=== PATIENT | female | born 1970 | race Two or more races ===

== ENCOUNTER 2023-10-12 23:30 | Inpatient (IN) | payer MEDICAID, OTHER ==
[~2023-10-12] VITALS: Ht 167.6 cm; Wt 74.0 kg
[2023-10-13 00:53] LABS: Basophils # (auto) 0.1 10 ^3/uL (0-0.2); Basophils % (auto) 0.5 % (0.0-2.0); Eosinophils # (auto) 0.5 10 ^3/uL (0-0.8); Eosinophils % (auto) 4.2 % (0.0-7.0); Hematocrit 38.9 % (36.0-46.0); Hemoglobin 13.1 g/dL (12.2-16.2); Lymphocytes # (auto) 1.8 10 ^3/uL (0.4-5.4); Lymphocytes % (auto) 13.9 % (10.0-50.0); Mean Corpuscular Hemoglobin 32.5 pg (28.0-32.0); Mean Corpuscular Hgb Conc. 33.7 g/dL (32.0-36.0); Mean Corpuscular Volume 96.4 fL (80.0-100.0); Monocytes # (auto) 0.7 10 ^3/uL (0-1.3); Monocytes % (auto) 5.9 % (0.0-12.0); Neutrophils # (auto) 9.6 10 ^3/uL (1.6-8.6); Neutrophils % (auto) 75.5 % (37.0-80.0); Red Blood Cells 4.03 10^6/uL (4.0-5.20); Red Cell Distribution Width 13.3 % (11.8-14.3); White Blood Cell 12.7 10^3/uL (4.4-10.8)
[2023-10-13 00:55] LABS: Alanine Aminotransferase 21 U/L (7-40); Albumin 4.2 g/dL (3.2-4.8); Alkaline Phosphatase 46 U/L (46-116); Anion Gap 6 (5-15); Aspartate Aminotransferase 18 U/L (13-40); BUN/Creatinine Ratio 20.2 (10.0-20.0); Bilirubin, Total 0.3 mg/dL (0.2-1.0); Blood Urea Nitrogen 17 mg/dL (9-23); Calcium 9.7 mg/dL (8.7-10.4); Carbon Dioxide 24 mmol/L (20-30); Chloride 112 mmol/L (98-107); Glucose 120 mg/dL (74-106); Lipase 57 U/L (12-53); Potassium 3.8 mmol/L (3.5-5.1); Sodium 142 mmol/L (136-145); Total Protein 6.9 g/dL (5.7-8.2)
[2023-10-13 00:56] LABS: INR 0.94 (0.9-1.15); Partial Thromboplastin Time 23.5 SEC (24.5-34.5)
[2023-10-13] MEDS ORDERED: ONDANSETRON HCL 4 MG/2 ML VIAL IV PRN ×2 (05:00→05:15)
[2023-10-13] MEDS ORDERED: ACETAMINOPHEN 325 MG TAB PO PRN (05:00)
[2023-10-13] MEDS ORDERED: HYDROcodone-ACET 5/325MG TAB PO PRN (05:00)
[2023-10-13] MEDS ORDERED: TEMAZEPAM 15 MG CAP PO PRN ×2 (05:00→05:15)
[2023-10-13] MEDS: metroNIDAZOLE 500MG/100ML 100 ML IV ONE (05:10)
[2023-10-13] MEDS: SODIUM CHLORIDE 0.9% 1,000 ML IV ONE (05:11)
[2023-10-13 05:12] VITALS: PULSE 68; RESP 18; O2SAT 97
[2023-10-13] MEDS: levoFLOXacin 500MG 100 ML IV ONE (05:55)
[2023-10-13] MEDS ORDERED: metroNIDAZOLE 500 MG TAB PO SCH (06:00)
[2023-10-13] MEDS: metroNIDAZOLE 500 MG TAB PO SCH ×2 (06:00→14:38)
[2023-10-13 09:42] LABS: Urine Bacteria None Seen /hpf (None Seen)
[2023-10-13 10:00] LABS: Urine Blood Negative /uL (Negative); Urine Clarity Clear (Clear); Urine Color Yellow (Yellow); Urine Protein, UAD Negative (Negative); Urine Urobilinogen Normal (Negative); Urine WBC 1 /hpf (0 - 5); Urine pH 5.5 (5.0-9.0)
[2023-10-13] MEDS ORDERED: levoFLOXacin 500MG 100 ML IV SCH (10:00)
[2023-10-13] MEDS: levoFLOXacin 500MG 100 ML IV SCH (10:23)
[2023-10-13] MEDS ORDERED: levoFLOXacin 500 MG TAB PO ONE (11:15)
[2023-10-13 14:38] LABS: Thyroid Stimulating Hormone 1.19 uIU/mL (0.55-4.78)
[2023-10-13] MEDS: PANTOPRAZOLE 40 MG TAB PO ONE (14:38)
[2023-10-13 14:46] LABS: Beta HCG, Quantitative 1.6 mIU/mL (1.5-4.2)
[2023-10-13 16:46] VITALS: BP 137/77; PULSE 77; RESP 17; TEMP 98; O2SAT 98
[2023-10-13 16:48] VITALS: PULSE 88; RESP 19; O2SAT 99
[2023-10-13] MEDS ORDERED: OMEP20TA PO (18:20)
[2023-10-13] MEDS ORDERED: VENL1TAB99 PO ×2 (18:20)
[2023-10-13] MEDS ORDERED: CETI-176 PO (18:20)
[2023-10-13] MEDS ORDERED: HYDR12.59 PO (18:20)
[2023-10-13] MEDS ORDERED: METO-289 PO (18:20)
[2023-10-13] MEDS ORDERED: ASPITAB37 PO (18:20)
[2023-10-14] MEDS ORDERED: PANTOPRAZOLE 40 MG TAB PO SCH (06:00)
[2023-10-14] MEDS ORDERED: levoFLOXacin 500 MG TAB PO SCH (10:00)
== END 2023-10-13 20:30 | disposition left against medical advice (07) | DRG 249 ==
LOC: EDBD 23:30 → ER 23:30 → OVERFLOW 10-13 04:49 → WEST WING 10-13 15:48
PROVIDERS: ADMIT Internal Medicine; ATTEND Surgery
DX: K52.9 Noninfective gastroenteritis and colitis, unspecified (principal); I10 Essential (primary) hypertension; Z88.0 Allergy status to penicillin; Z79.899 Other long term (current) drug therapy; Z88.2 Allergy status to sulfonamides; Z91.041 Radiographic dye allergy status; Z83.3 Family history of diabetes mellitus; Z80.0 Family history of malignant neoplasm of digestive organs; Z82.49 Family history of ischemic heart disease and other diseases of the circulatory system
CPT/HCPCS: 36415; 74176; 80053; 81001; 82306; 82607; 83036; 83690; 84443; 84702; 85025; 85610; 85730; 93005; 96365; 96366; 96367; G0378; J1956; J3490

== ENCOUNTER 2024-03-20 14:52 | Emergency (ER) | payer MEDICAID ==
[~2024-03-20] VITALS: Ht 162.6 cm; Wt 69.5 kg
[~2024-03-20 14:52] MED LIST: ASPITAB37 PO; CETI-176 PO; HYDR12.59 PO; METO-289 PO; OMEP20TA PO; VENL1TAB99 PO
--- NOTE | 2024-03-20 15:24 | ED.PDOC ---
History of Present Illness HPI Comments 53F presents to the ER w/ no prior Hx associated to the c/c of wrist pain. Pt reports that she was on a ladder trimming a "high tree" when she fell and landed on her left wrist. Pt notes the incident to be 1 hour ago. PMHx of HTN. Social Hx of tobacco use, but denies alcohol and substance use. Family Hx of DM and Liver Cancer. Denies chills, fever, N/V/D, SOB, CP or other associated symptoms, modifiers, or recent injuries at this time. Chief Complaint: Upper Extremity Time Seen by MD: 15:15 Primary Care Provider: RACHAEL Reviewed Notes: Nurses Notes, Medications, Allergies Allergies: Coded Allergies: Iodine (Verified Allergy, Unknown, 10/12/23) Penicillins (Verified Allergy, Unknown, 10/12/23) Sulfa Antibiotics (Verified Allergy, Unknown, 10/12/23) Home Meds Active Scripts Hydrocodone-Acetaminophen (Hydrocodone Bitartrate/AC 5-325 mg) 1 Tab Tab, 1 TAB PO Q8HP PRN for 5 Days, #15 TAB Prov:BRITTANY ESCOTO MD 03/20/24 Reported Medications Venlafaxine Hydrochloride (Venlafaxine Hcl) 75 Mg Tab, 75 MG PO DAILY, TAB 10/13/23 Omeprazole (Gnp Omeprazole) 20 Mg Tab, 20 MG PO, TAB 10/13/23 Onkbomx-Cyknfcumsgwha-Kjatomum (Excedrin Extra Strength) Expr Gel Tab, 1 GEL PO Q6HP, TAB 10/13/23 Cetirizine Hcl (Zyrtec Allergy) 10 Mg Tab, 10 MG PO, TAB 10/13/23 Venlafaxine Hydrochloride (Venlafaxine Hcl) 75 Mg Tab, 75 MG PO, TAB 10/13/23 Hydrochlorothiazide (Hydrochlorothiazide) 12.5 Mg Cap, 12.5 MG PO DAILY, CAP 10/13/23 Metoprolol Succinate (Metoprolol Succinate Er) 50 Mg Tab, 50 MG PO, TAB 10/13/23 Information Source: Patient Mode of Arrival: Ambulatory Severity: Moderate Timing: Minutes Duration: Since onset, Minutes Prehospital treatment: None Past Medical History PAST MEDICAL HISTORY: HTN Surgical History: Denies all surgeries 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 Family History Family History: Reviewed,noncontributory to illness, Family hx of DM, Family hx of Cancer (Liver) Social History Smoker: Cigarettes Alcohol: Denies ETOH Use Drugs: Denies Drug Use Lives In: Home Constitutional: reports: others (fall trauma); denies: chills, diaphoresis, fatigue, fever, malaise, sweats, weakness EENTM: denies: blurred vision, double vision, ear bleeding, ear discharge, ear drainage, ear pain, ear ringing, eye pain, eye redness, hearing loss, mouth pain, mouth swelling, nasal discharge, nose bleeding, nose congestion, nose pain, photophobia, tearing, throat pain, throat swelling, voice changes, others Respiratory: denies: cough, hemoptysis, orthopnea, SOB at rest, shortness of breath, SOB with excertion, stridor, wheezing, others Cardiovascular: denies: chest pain, dizzy spells, diaphoresis, Dyspnea on exertion, edema, irregular heart beat, left arm pain, lightheadedness, palpitations, PND, syncope, others Gastrointestinal: denies: abdomen distended, abdominal pain, blood streaked bowels, constipated, diarrhea, dysphagia, difficulty swallowing, hematemesis, melena, nausea, poor appetite, poor fluid intake, rectal bleeding, rectal pain, vomiting, others Genitourinary: denies: abnormal vagina bleeding, burning, dyspareunia, dysuria, flank pain, frequency, hematuria, incontinence, pain, , vagina discharge, urgency, others Neurological: denies: dizziness, fainting, headache, left sided numbness, left sided weakness, numbness, paresthesia, pre-existing deficit, right sided numbness, right sided weakness, seizure, speech problems, tingling, tremors, weakness, others Musculoskeletal: reports: others (Left wrist injury); denies: back pain, gout, joint pain, joint swelling, muscle pain, muscle stiffness, neck pain Integumetry: denies: bruises, change in color, change in hair/nails, dryness, laceration, lesions, lumps, rash, wounds, others Allergic/Immunocompromised: denies: Difficulty Healing, Frequent Infections, Hives, Itching, others Hematologic/Lymphatic: denies: anemia, blood clots, easy bleeding, easy bruising, swollen glands, others Endocrine: denies: excessive hunger, excessive sweating, excessive thirst, excessive urination, flushing, intolerance to cold, intolerance to heat, unexplained weight gain, unexplained weight loss, others Psychiatric: denies: anxiety, bipolar disorder, depression, hopeless, panic disorder, schizophrenia, sleepless, suicidal, others All Other Systems: Reviewed and Negative Physical Exam General Appearance: Moderate Distress HEENT: Normal ENT Inspection, Pharynx Normal, TMs Normal Neck: Full Range of Motion, Non-Tender, Normal, Normal Inspection Respiratory: Chest Non-Tender, Lungs Clear, No Accessory Muscle Use, No Respiratory Distress, Normal Breath Sounds Cardiovascular: No Edema, No JVD, No Murmur, No Gallop, Normal Peripheral Pulses, Regular Rate/Rhythm Breast Exam: Deferred Gastrointestinal: No Organomegaly, Non Tender, No Pulsatile Mass, Normal Bowel Sounds, Soft Genitalia: Deferred Pelvic: Deferred Rectal: Deferred Extremities: No calf tenderness, Normal capillary refill, No pedal edema Musculoskeletal : Location: Left Extremity Location: Wrist Apperance: Swelling, Deformity, Limited ROM, Tenderness: Moderate Neurologic: Alert, surgical territory manager II-XII nml as Tested, No Motor Deficits, Normal Affect, Normal Mood, No Sensory Deficits Cerebellar Function: Normal Reflexes: Normal Skin: Dry, Normal Color, Warm Lymphatic: No Adenopathy Was a procedure done? Was a procedure done?: No Differential Dx Considerations may include: Fracture, strain, contusion X-Ray, Labs, Meds, VS Vital Signs Date Time Temp Pulse Resp B/P (MAP) Pulse Ox O2 Delivery O2 Flow Rate FiO2 03/20/24 17:24 77 16 162/109 (126) 97 03/20/24 16:25 90 15 142/97 03/20/24 15:35 87 16 97 Room Air* 0 21 03/20/24 15:33 98.3 87 16 151/97 (115) 97 98.3 03/20/24 15:10 98.2 99 16 156/104 (121) 97 Lab Test 03/20/24 15:37 Range/Units White Blood Count 10.4 4.4-10.8 10^3/uL Red Blood Count 4.25 4.0-5.20 10^6/uL Hemoglobin 13.5 12.2-16.2 g/dL Hematocrit 40.2 36.0-46.0 % Mean Corpuscular Volume 94.7 80.0-100.0 fL Mean Corpuscular Hemoglobin 31.8 28.0-32.0 pg Mean Corpuscular Hemoglobin Concent 33.6 32.0-36.0 g/dL Red Cell Distribution Width 13.2 11.8-14.3 % Platelet Count 298 140-450 10^3/uL Mean Platelet Volume 7.1 6.9-10.8 fL Neutrophils (%) (Auto) 76.9 37.0-80.0 % Lymphocytes (%) (Auto) 15.5 10.0-50.0 % Monocytes (%) (Auto) 5.8 0.0-12.0 % Eosinophils (%) (Auto) 1.3 0.0-7.0 % Basophils (%) (Auto) 0.5 0.0-2.0 % Neutrophils # (Auto) 8.0 1.6-8.6 10 ^3/uL Lymphocytes # (Auto) 1.6 0.4-5.4 10 ^3/uL Monocytes # (Auto) 0.6 0-1.3 10 ^3/uL Eosinophils # (Auto) 0.1 0-0.8 10 ^3/uL Basophils # (Auto) 0.1 0-0.2 10 ^3/uL Nucleated Red Blood Cells 0.0 % Prothrombin Time 10.3 9.3-11.8 sec Prothrombin Time INR 0.97 0.9-1.15 Activated Partial Thromboplast Time 25.0 24.5-34.5 SEC Sodium Level 140 136-145 mmol/L Potassium Level 3.6 3.5-5.1 mmol/L Chloride Level 108 H 98-107 mmol/L Carbon Dioxide Level 27 20-31 mmol/L Anion Gap 5 5-15 Blood Urea Nitrogen 16 9-23 mg/dL Creatinine 0.96 0.550-1.02 mg/dL Glomerular Filtration Rate Calc 70 >90 mL/min BUN/Creatinine Ratio 16.7 10.0-20.0 Serum Glucose 90 74-106 mg/dL Calcium Level 10.3 8.7-10.4 mg/dL Current Medications Medications (Trade) Dose Ordered Sig/Aida Route Start Time Stop Time Status Last Admin Morphine Sulfate 4 mg ONCE ONCE IV 03/20/24 15:15 03/20/24 15:18 DC 03/20/24 16:25 Ondansetron HCl (Zofran) 4 mg ONCE ONCE IV 03/20/24 15:15 03/20/24 15:18 DC 03/20/24 16:25 Etomidate 14 mg ONCE ONCE IV 03/20/24 17:30 03/20/24 17:31 03/20/24 17:05 PATIENT: GRETA HAYWARD ACCT: [id number] UNIT: [id number] : 1970 LOC: ER ROOM / BED: / AGE / SEX: 53 / F ADM STATUS: REG ER SERVICE [id number] ORDERING PHYSICIAN: BRITTANY ESCOTO MD PROCEDURE(s): LWRI - L WRIST 3+ VIEW XRAY REASON: trauma ORDER NUMBER(s): [id number], ACCESSION NUMBER(s): [id number] CLINICAL INDICATION: trauma TECHNIQUE: 3 radiographic views of the left were obtained. Comparison: None FINDINGS/IMPRESSION: Impacted comminuted displaced intra-articular fracture of the distal radius with mildly displaced fracture of the styloid process of the ulna. At this time, the patient underwent reduction here in the emergency department's The patient was given etomidate 20 mg IV push We did send the original images to the orthopedic surgeon. We did attempt a reduction with some improvements so the patient will be splinted and will be seen by the orthopedic surgeon tomorrow. The patient's CBC and chemistry panel is within normal limits The patient understands and agrees with the management The patient was given morphine for the pain and Zofran for the nausea The patient will be sent home on [employer] Images Reviewed?: Images reviewed and evaluated by me Time of 1ST Reevaluation: 15:45 Reevaluation 1ST: Unchanged Patient Education/Counseling: Diagnosis, Treatment, Prognosis, Need For Follow Up Family Education/Counseling: No Family Present Departure 1 Departure Time of Disposition: 17:13 Impression: Primary Impression: Left wrist fracture Qualified Codes: S62.102A - Fracture of unspecified carpal bone, left wrist, initial encounter for closed fracture Disposition: HOME / SELF CARE / HOMELESS Condition: Fair e-Prescriptions Hydrocodone-Acetaminophen (Hydrocodone Bitartrate/AC 5-325 mg) 1 Tab Tab 1 TAB PO Q8HP PRN for 5 Days, #15 TAB Prov: BRITTANY ESCOTO MD 03/20/24 Discharged With: Self Critical Care Note Critical Care Time?: No Stability Stability form required: No Heart Score Heart Score: Heart Score Response (Comments) Value History N/A 0 EKG N/A 0 Age N/A 0 Risk Factors N/A 0 Troponin N/A 0 Total 0 I personally scribed for BRITTANY ESCOTO MD ([email or web address]) on 03/20/24 at 15:24. Electronically submitted by Deng Gutierrez ([email or web address]). I personally scribed for BRITTANY ESCOTO MD ([email or web address]) on 03/20/24 at 16:51. Electronically submitted by Deng Gutierrez ([email or web address]). BRITTANY ESCOTO MD Mar 20, 2024 15:24
[2024-03-20 15:35] VITALS: PULSE 87; RESP 16; O2SAT 97
[2024-03-20 15:45] LABS: Basophils # (auto) 0.1 10 ^3/uL (0-0.2); Basophils % (auto) 0.5 % (0.0-2.0); Eosinophils # (auto) 0.1 10 ^3/uL (0-0.8); Eosinophils % (auto) 1.3 % (0.0-7.0); Hematocrit 40.2 % (36.0-46.0); Hemoglobin 13.5 g/dL (12.2-16.2); Lymphocytes # (auto) 1.6 10 ^3/uL (0.4-5.4); Lymphocytes % (auto) 15.5 % (10.0-50.0); Mean Corpuscular Hemoglobin 31.8 pg (28.0-32.0); Mean Corpuscular Hgb Conc. 33.6 g/dL (32.0-36.0); Mean Corpuscular Volume 94.7 fL (80.0-100.0); Monocytes # (auto) 0.6 10 ^3/uL (0-1.3); Monocytes % (auto) 5.8 % (0.0-12.0); Neutrophils % (auto) 76.9 % (37.0-80.0); Platelet Count (auto) 298 10^3/uL (140-450); Red Blood Cells 4.25 10^6/uL (4.0-5.20); Red Cell Distribution Width 13.2 % (11.8-14.3); White Blood Cell 10.4 10^3/uL (4.4-10.8)
[2024-03-20 15:54] LABS: Chloride 108 mmol/L (98-107); Potassium 3.6 mmol/L (3.5-5.1); Sodium 140 mmol/L (136-145)
[2024-03-20 15:55] LABS: Anion Gap 5 (5-15); Calcium 10.3 mg/dL (8.7-10.4); Carbon Dioxide 27 mmol/L (20-31)
[2024-03-20 16:00] LABS: BUN/Creatinine Ratio 16.7 (10.0-20.0); Blood Urea Nitrogen 16 mg/dL (9-23); Glucose 90 mg/dL (74-106); INR 0.97 (0.9-1.15); Prothrombin Time 10.3 sec (9.3-11.8)
[2024-03-20] MEDS: MORPHINE SULFATE 4 MG/ML SYR/VIAL IV ONE (16:25)
[2024-03-20] MEDS: ONDANSETRON HCL 4 MG/2 ML VIAL IV ONE (16:25)
--- NOTE | 2024-03-20 16:27 | DVH ---
CLINICAL INDICATION: trauma TECHNIQUE: 3 radiographic views of the left were obtained. Comparison: None FINDINGS/IMPRESSION: Impacted comminuted displaced intra-articular fracture of the distal radius with mildly displaced fra cture of the styloid process of the ulna.
[2024-03-20] MEDS ORDERED: ETOMIDATE (2MG/ML) 20ML VIAL IV ONE (16:45)
[2024-03-20] MEDS: ETOMIDATE (2MG/ML) 20ML VIAL IV ONE (17:05)
[2024-03-20] MEDS ORDERED: HYDR-4902 PO (17:15)
--- NOTE | 2024-03-20 17:42 | DVH ---
CLINICAL INDICATION: post reduction TECHNIQUE: 2 radiographic views of the left wrist were obtained. Comparison: XY L WRIST 3+ VIEW XRAY on DOS: 03/20/24 FINDINGS/IMPRESSION: Distal radial and ulnar fractures are visualized. There is less dorsal displacement of the distal rad ial fracture. Wrist is in a fiberglass cast. The visualized joint space is well maintained. The alignment is anatomical. There is no radiopaque foreign body.
[2024-03-20 18:48] VITALS: BP 139/89; PULSE 79; RESP 13; TEMP 98.3; O2SAT 92
== END 2024-03-20 18:43 | disposition home or self-care (01) ==
LOC: ER 14:52
DX: S52.572A Other intraarticular fracture of lower end of left radius, initial encounter for closed fracture (principal); S52.592A Other fractures of lower end of left radius, initial encounter for closed fracture; S52.612A Displaced fracture of left ulna styloid process, initial encounter for closed fracture; I10 Essential (primary) hypertension; F17.210 Nicotine dependence, cigarettes, uncomplicated; Z79.899 Other long term (current) drug therapy; Z88.0 Allergy status to penicillin; Z88.2 Allergy status to sulfonamides; Z88.8 Allergy status to other drugs, medicaments and biological substances; Z91.041 Radiographic dye allergy status; Z79.01 Long term (current) use of anticoagulants; W18.09XA Striking against other object with subsequent fall, initial encounter; Y93.89 Activity, other specified; Y92.89 Other specified places as the place of occurrence of the external cause; Y99.8 Other external cause status
CPT/HCPCS: 25605; 36415; 73100; 73110; 80048; 85025; 85610; 85730; 96374; 96375; 99152; 99285; J2270; J2405